=== PATIENT | female | born 1940 | race Caucasian/White ===

== ENCOUNTER 2021-10-06 09:37 | Observation (INO) | payer MEDICARE ==
[2021-10-02 12:13] LABS: BASOPHILS # (AUTO) 0.1 (0.0-0.1); BASOPHILS % 1.1 % (0.0-1.0); EOSINOPHILS # (AUTO) 0.2 (0.0-0.4); HEMATOCRIT 35.9 % (34.2-44.1); HEMOGLOBIN 11.9 g/dL (12.0-16.0); LYMPHOCYTES # (AUTO) 1.5 (1.0-3.2); MEAN CORPUSCULAR HEMOGLOBIN 33.7 pg (28-32); MEAN CORPUSCULAR HGB CONC 33.1 g/dL (31-35); MEAN CORPUSCULAR VOLUME 101.7 fL (81-99); MONOCYTES # (AUTO) 0.5 (0.2-0.8); MONOCYTES % 8.7 % (4.4-11.3); NEUTROPHILS # (AUTO) 3.4 (2.1-6.9); PLATELET COUNT 190 x10e3/uL (140-360); RED BLOOD COUNT 3.53 x10e6/uL (3.6-5.1); RED CELL DISTRIBUTION WIDTH 12.5 % (11.7-14.4)
[~2021-10-06] VITALS: Ht 167.6 cm; Wt 56.7 kg
[~2021-10-06 09:37] MED LIST: ASPIR 8181 MG PO; CELECOXIB 200 MG CAP ONE; DEXAMETHASONE SOD PHOS 10 MG/1 ML VIAL ONE; FLONASE ALLERG9.9 ML INH; GABAPENTIN 300 MG CAP ONE; GABAPENTIN300 MG PO; LEVOTHYROXINE88 MCG PO; OMEPRAZOLE40 MG PO; ROPIVACAINE 246.25 MG, EPINEPHRINE HCL 1:1000 1ML 0.5 MG, CLONIDINE HCL 0.08 MG, KETORO... INJ ONE; SIMVASTATIN10 MG PO; SODIUM CHLORIDE 0.9% 50ML 50 ML ONE; SYMBICORT 16010.2 GM INH
[2021-10-06] MEDS ORDERED: TRANEXAMIC ACID 20 ML ONE (10:13)
[2021-10-06] MEDS ORDERED: SODIUM CHLORIDE 0.9% 500ML 500 ML ONE (10:13)
[2021-10-06] MEDS ORDERED: Vancomycin IV 1,000 MG ONE (10:13)
[2021-10-06] MEDS ORDERED: HYDROCODONE/APAP 7.5MG-325MG 1 EA TAB PO PRN (11:45)
[2021-10-06] MEDS ORDERED: DIPHENHYDRAMINE HCL INJ 50 MG/ML VIAL IV PRN (11:45)
[2021-10-06] MEDS ORDERED: DOCUSATE SODIUM 100 MG CAP PO PRN (11:45)
[2021-10-06] MEDS ORDERED: ACETAMINOPHEN 650 MG SUPP PR PRN (11:45)
[2021-10-06] MEDS ORDERED: ONDANSETRON HCL INJ 2MG/ML 2ML 2 MG/ML VIAL IV PRN (11:45)
[2021-10-06] MEDS ORDERED: ZOLPIDEM TARTRATE 5 MG TAB PO PRN (11:45)
[2021-10-06] MEDS ORDERED: FENTANYL CITRATE/PF 100MCG/2 ML INJ ONE (12:23)
[2021-10-06 13:20] VITALS: BP 131/60
[2021-10-06 13:25] VITALS: BP 131/60
[2021-10-06] MEDS ORDERED: SEVOFLURANE INHAL SOLN 250 ML PEN BTL ONE (13:32)
[2021-10-06] MEDS ORDERED: ACETAMINOPHEN 1000 MG/100 ML IV ONE (13:32)
[2021-10-06] MEDS ORDERED: LIDOCAINE HCL 2% LOCAL INJ 5 ML SDV VIAL INJ ONE (13:32)
[2021-10-06] MEDS ORDERED: POVIDONE IODINE 0.05% 0.05 % ML PO ONE (13:32)
[2021-10-06] MEDS ORDERED: PROPOFOL IV EMULSION 10 MG/ML 20 ML VIAL ONE (13:32)
[2021-10-06] MEDS ORDERED: ONDANSETRON HCL INJ 2MG/ML 2ML 2 MG/ML VIAL ONE (13:32)
[2021-10-06] MEDS: SODIUM CHLORIDE 0.9% 1000ML 1,000 ML IV SCH (14:37)
[2021-10-06] MEDS: Cefazolin 1 GM in SODIUM CHLORIDE 0.9% 50ML 50 ML IV SCH (17:06)
[2021-10-06] MEDS: CELECOXIB 200 MG CAP PO SCH (17:06)
[2021-10-06] MEDS: ASPIRIN 325 MG TAB PO SCH (17:06)
[2021-10-06] MEDS: KETOROLAC TROMETHAMINE 30 MG/ML VIAL IV PRN ×2 (17:16→23:20)
[2021-10-06 17:17] VITALS: BP 112/79
[2021-10-06 20:00] VITALS: BP 120/56
[2021-10-06 20:45] VITALS: BP 120/56
[2021-10-07] VITALS: BP 112/51
[2021-10-07] MEDS: Cefazolin 1 GM in SODIUM CHLORIDE 0.9% 50ML 50 ML IV SCH ×2 (01:48→09:31)
[2021-10-07] MEDS: SODIUM CHLORIDE 0.9% 1000ML 1,000 ML IV SCH (01:48)
[2021-10-07 04:00] VITALS: BP 113/60
[2021-10-07 04:55] LABS: HEMATOCRIT 28.5 % (34.2-44.1); HEMOGLOBIN 9.3 g/dL (12.0-16.0)
[2021-10-07 07:45] VITALS: BP 118/58
[2021-10-07] MEDS ORDERED: LEVOTHYROXINE SODIUM 88 MCG TAB PO ONE (08:30)
[2021-10-07] MEDS ORDERED: LEVOTHYROXINE SODIUM 88 MCG TAB PO SCH (08:30)
[2021-10-07] MEDS ORDERED: PANTOPRAZOLE SOD 40 MG TABEC PO SCH (08:30)
[2021-10-07] MEDS ORDERED: GABAPENTIN 300 MG CAP PO SCH (09:00)
[2021-10-07] MEDS: ASPIRIN 325 MG TAB PO SCH (09:00)
[2021-10-07] MEDS ORDERED: IRON-VITAMIN-MINERAL CAPSULE PO SCH (09:00)
[2021-10-07] MEDS: HYDROCODONE/APAP 5MG-325MG TAB PO PRN ×2 (09:30→10:14)
[2021-10-07] MEDS: CELECOXIB 200 MG CAP PO SCH (09:31)
[2021-10-07 09:33] VITALS: BP 118/58
[2021-10-07 11:29] VITALS: BP 112/50
[2021-10-07] MEDS ORDERED: ACETAMINOPHEN 1000 MG/100 ML IV PRN (11:45)
[2021-10-07] MEDS ORDERED: KETOROLAC TROMETHAMINE 30 MG/ML VIAL IV ONE (12:30)
[2021-10-08] MEDS ORDERED: PANTOPRAZOLE SOD 40 MG TABEC PO SCH (06:00)
[2021-10-08] MEDS ORDERED: LEVOTHYROXINE SODIUM 88 MCG TAB PO SCH (06:00)
== END 2021-10-07 13:02 | disposition home or self-care (01) ==
LOC: OR 09:37 → PACU V 11:45 → MED/SURG 12:51
PROVIDERS: ADMIT Specialist; ATTEND Specialist
DX: M17.0 Bilateral primary osteoarthritis of knee (principal); E03.9 Hypothyroidism, unspecified; K21.9 Gastro-esophageal reflux disease without esophagitis; D64.9 Anemia, unspecified; J44.9 Chronic obstructive pulmonary disease, unspecified; Z20.822 Contact with and (suspected) exposure to COVID-19; Z01.818 Encounter for other preprocedural examination
CPT/HCPCS: 27130; 36415 ×2; 71046; 72170; 85014; 85018; 85025; 86850; 86900; 86920; 94799; 97110; 97116 ×2; 97139 ×2; 97161; 97530 ×2; C1713 ×2; C1776 ×2; G0378 ×2; J0131; J0171; J0690 ×2; J1100; J1885 ×2; J2001; J2405; J2704; J2795; J3010; J3370; J7030 ×2; J7040; U0002

== ENCOUNTER 2021-11-16 07:27 | Observation (INO) | payer MEDICARE ==
[2021-11-12 11:36] LABS: BASOPHILS # (AUTO) 0.1 (0.0-0.1); BASOPHILS % 1.3 % (0.0-1.0); EOSINOPHILS # (AUTO) 0.2 (0.0-0.4); EOSINOPHILS % 3.4 % (0.0-6.0); HEMATOCRIT 35.9 % (34.2-44.1); HEMOGLOBIN 11.4 g/dL (12.0-16.0); LYMPHOCYTES # (AUTO) 1.5 (1.0-3.2); LYMPHOCYTES % 31.8 % (18.0-39.1); MEAN CORPUSCULAR HEMOGLOBIN 32.9 pg (28-32); MEAN CORPUSCULAR HGB CONC 31.8 g/dL (31-35); MEAN CORPUSCULAR VOLUME 103.5 fL (81-99); MONOCYTES # (AUTO) 0.4 (0.2-0.8); MONOCYTES % 9.4 % (4.4-11.3); NEUTROPHILS # (AUTO) 2.5 (2.1-6.9); NEUTROPHILS % 54.1 % (38.7-80.0); PLATELET COUNT 196 x10e3/uL (140-360); RED BLOOD COUNT 3.47 x10e6/uL (3.6-5.1); RED CELL DISTRIBUTION WIDTH 13.2 % (11.7-14.4)
[~2021-11-16] VITALS: Ht 167.6 cm; Wt 57.2 kg
[~2021-11-16 07:27] MED LIST changes: -CELECOXIB 200 MG CAP ONE; -DEXAMETHASONE SOD PHOS 10 MG/1 ML VIAL ONE; -GABAPENTIN 300 MG CAP ONE; -ROPIVACAINE 246.25 MG, EPINEPHRINE HCL 1:1000 1ML 0.5 MG, CLONIDINE HCL 0.08 MG, KETORO... INJ ONE; -SODIUM CHLORIDE 0.9% 50ML 50 ML ONE; +TYLENOL ARTHRITIS PO
[2021-11-16] MEDS ORDERED: DEXAMETHASONE SOD PHOS 10 MG/1 ML VIAL ONE (07:30)
[2021-11-16] MEDS ORDERED: CELECOXIB 200 MG CAP ONE (07:30)
[2021-11-16] MEDS ORDERED: GABAPENTIN 300 MG CAP ONE (07:31)
[2021-11-16] MEDS ORDERED: ROPIVACAINE 246.25 MG, EPINEPHRINE HCL 1:1000 1ML 0.5 MG, CLONIDINE HCL 0.08 MG, KETORO... INJ ONE ×5 (08:00)
[2021-11-16] MEDS ORDERED: TRANEXAMIC ACID 20 ML ONE (08:47)
[2021-11-16] MEDS ORDERED: Vancomycin IV 1,000 MG ONE (08:48)
[2021-11-16] MEDS ORDERED: SODIUM CHLORIDE 0.9% 500ML 500 ML ONE (08:48)
[2021-11-16] MEDS ORDERED: DIPHENHYDRAMINE HCL INJ 50 MG/ML VIAL IV PRN (11:15)
[2021-11-16] MEDS ORDERED: DOCUSATE SODIUM 100 MG CAP PO PRN (11:15)
[2021-11-16] MEDS ORDERED: KETOROLAC TROMETHAMINE 30 MG/ML VIAL IV PRN (11:15)
[2021-11-16] MEDS ORDERED: ACETAMINOPHEN 650 MG SUPP PR PRN (11:15)
[2021-11-16] MEDS ORDERED: ONDANSETRON HCL INJ 2MG/ML 2ML 2 MG/ML VIAL IV PRN (11:15)
[2021-11-16] MEDS ORDERED: HYDROCODONE/APAP 5MG-325MG TAB PO PRN (11:15)
[2021-11-16] MEDS ORDERED: FENTANYL CITRATE/PF 100MCG/2 ML INJ ONE (12:58)
[2021-11-16] MEDS ORDERED: MIDAZOLAM HCL 2 MG/2 ML VIAL ONE (12:58)
[2021-11-16] MEDS ORDERED: POVIDONE IODINE 0.05% 0.05 % ML PO ONE (13:40)
[2021-11-16] MEDS ORDERED: PROPOFOL IV EMULSION 10 MG/ML 20 ML VIAL ONE (13:40)
[2021-11-16] MEDS ORDERED: ONDANSETRON HCL INJ 2MG/ML 2ML 2 MG/ML VIAL ONE (13:40)
[2021-11-16] MEDS ORDERED: ACETAMINOPHEN 1000 MG/100 ML IV ONE (13:40)
[2021-11-16] MEDS ORDERED: EPHEDRINE SULFATE INJ 50 MG/ML VIAL ONE (13:40)
[2021-11-16 17:40] VITALS: BP 118/60
[2021-11-16 18:05] VITALS: BP 118/60
[2021-11-16 18:09] VITALS: BP 118/60
[2021-11-16] MEDS: SODIUM CHLORIDE 0.9% 1000ML 1,000 ML IV SCH (18:10)
[2021-11-16] MEDS: CELECOXIB 200 MG CAP PO SCH (18:10)
[2021-11-16 20:00] VITALS: BP 112/63
[2021-11-16] MEDS: ASPIRIN 325 MG TAB PO SCH (20:09)
[2021-11-16] MEDS: HYDROCODONE/APAP 7.5MG-325MG 1 EA TAB PO PRN (20:10)
[2021-11-16] MEDS ORDERED: ZOLPIDEM TARTRATE 5 MG TAB PO PRN (21:00)
[2021-11-16] MEDS: GABAPENTIN 300 MG CAP PO SCH (21:37)
[2021-11-17] VITALS: BP 111/53
[2021-11-17] MEDS: HYDROCODONE/APAP 7.5MG-325MG 1 EA TAB PO PRN ×2 (01:05→05:20)
[2021-11-17] MEDS: SODIUM CHLORIDE 0.9% 1000ML 1,000 ML IV SCH (01:43)
[2021-11-17 04:00] VITALS: BP 106/54
[2021-11-17 05:59] LABS: HEMATOCRIT 29.2 % (34.2-44.1); HEMOGLOBIN 9.3 g/dL (12.0-16.0)
[2021-11-17 08:00] VITALS: BP 104/55
[2021-11-17 08:24] VITALS: BP 104/55
[2021-11-17] MEDS: CELECOXIB 200 MG CAP PO SCH (08:49)
[2021-11-17] MEDS: ASPIRIN 325 MG TAB PO SCH (08:49)
[2021-11-17] MEDS: GABAPENTIN 300 MG CAP PO SCH (08:49)
[2021-11-17] MEDS ORDERED: LEVOTHYROXINE SODIUM 88 MCG TAB PO SCH (09:00)
[2021-11-17] MEDS ORDERED: GABAPENTIN 300 MG CAP PO SCH (09:00)
[2021-11-17] MEDS ORDERED: PANTOPRAZOLE SOD 40 MG TABEC PO SCH (09:00)
[2021-11-17] MEDS ORDERED: ONDANSETRON HCL 4 MG ORAL DISINTEGRATING TAB PO PRN (10:30)
[2021-11-17] MEDS ORDERED: ACETAMINOPHEN 1000 MG/100 ML IV PRN (11:15)
[2021-11-17 11:59] VITALS: BP 96/43
[2021-11-17 12:15] VITALS: BP 103/45
== END 2021-11-17 14:25 | disposition home or self-care (01) ==
LOC: OR 07:27 → PACU V 11:09 → MED/SURG 17:31
PROVIDERS: ADMIT Specialist; ATTEND Specialist
DX: M16.0 Bilateral primary osteoarthritis of hip (principal); Z96.642 Presence of left artificial hip joint; J44.9 Chronic obstructive pulmonary disease, unspecified; Z87.891 Personal history of nicotine dependence; K21.9 Gastro-esophageal reflux disease without esophagitis; E03.9 Hypothyroidism, unspecified; Z79.82 Long term (current) use of aspirin; E78.00 Pure hypercholesterolemia, unspecified; Z20.822 Contact with and (suspected) exposure to COVID-19
CPT/HCPCS: 27130; 36415 ×2; 72170; 85014; 85018; 85025; 86850; 86900; 86920; 94799; 97116 ×2; 97139; 97161; 97530; 99251; G0378 ×2; J0131; J0171; J0690 ×2; J1100; J1885; J2405; J2704; J2795; J3370; J7030; J7040; S0164; U0002; J2250; J3010